=== PATIENT | female | born 1945 | race Caucasian/White ===

== ENCOUNTER 2019-07-08 11:42 | Emergency (ER) | payer MEDICARE, BC ==
--- OUTSIDE RECORDS SUMMARY | 2019-07-08 12:04 | XMS REPORT | Continuity of Care Document ---
:1945 External Reference #:[id number] Author Name Anand Fernandez M.D. (transmitted by agent of provider Gabby Haywood) Address [address] [place] [id number] Care Team Providers Name Role Phone Adolph Castro M.D. Care Team Information Java Application Engineer [phone] Rebecca Pardo ANP-C Care Team Information Java Application Engineer [phone] Problems Active Problems Provider Date Carotid artery occlusion Vascular Lab Onset: 08/11/2011 Raynaud's disease Vascular Lab Onset: 08/11/2011 Social History Type Date Description Comments Sex Unknown Tobacco Use Start: Unknown End: Unknown Former Cigarette Smoker 1 Pack Daily Tobacco Use Start: Unknown End: Unknown Former Cigarette Smoker 1 Pack Daily Cigarette Use Pack Years - 35 ETOH Use Denies alcohol use Tobacco Use Start: Unknown End: Unknown Patient is a former smoker Smoking Status Reviewed: 06/07/19 Patient is a former smoker Allergies, Adverse Reactions, Alerts Description No Known Drug Allergies Medications Active Medications SIG Qnty Indications Ordering Provider Date Clopidogrel Bisulfate 1 po qd 30tabs Anand Fernandez M.D. 06/07/2019 75mg Tablets Calcium-D qd Vascular Lab 06/23/2009 600mg Capsules Osteo Bi Flex qd Vascular Lab 06/23/2009 Aspir-81 qd Vascular Lab 06/23/[address] Fish Oil qd Vascular Lab 06/23/2009 1000mg Capsules Glucosamine-Chondroitin qd Vascular Lab 06/23/2009 1000mg Capsules Tylenol 2 qd Vascular Lab 06/23/2009 Red Yeast Rice Extract qd Unknown 600mg Capsules Immunizations Description No Information Available Vital Signs Date Vital Result Comment 06/07/2019 12:17pm BP Systolic Left Arm 80 mmHg BP Diastolic Left Arm 60 mmHg Height 63 inches 5'3" Weight 168.00 lb Weight 76.205 kg BMI (Body Mass Index) 29.8 kg/m2 08/21/2018 1:55pm BP Systolic Left Arm 110 mmHg Diff to hear BP Diastolic Left Arm 70 mmHg Diff to hear Height 63 inches 5'3" Weight 200.00 lb Weight 90.720 kg BMI (Body Mass Index) 35.4 kg/m2 Results Test Date Facility Test Result H/L Range Note Xray 06/07/2019 Main Office Carotid Ultrasound Bilateral <pending> [phone] Procedures Date Code Description Status 06/07/2019 60964 Duplex Scan Extracranial Arteries, Complete Bilateral Completed Study Medical Devices Description No Information Available Encounters Description No Information Available Assessments Date Code Description Provider 06/07/2019 I65.23 Occlusion and stenosis of bilateral carotid Anand Fernandez M.D. arteries 06/07/2019 I65.23 Occlusion and stenosis of bilateral carotid Vascular Lab arteries Plan of Treatment Future Appointment(s):06/11/2020 10:00 am - Anand Fernandez M.D. at Main Mqoezt7506/11/2020 9:30 am - V[facility] Lab at [facility] Qzxmow8706/07/2019 - Anand Fernandez M.D.New Medication:Clopidogrel Bisulfate 75 mgNew Xrays:Carotid Ultrasound Bilateral, Scheduled: 06/07/19Follow up:1 YEAR OV/US/ CAROTID BILATERAL/ Functional Status Description No Information Available Mental Status Description No Information Available Referrals Description No Information Available
--- OUTSIDE RECORDS SUMMARY | 2019-07-08 12:04 | XMS REPORT | Continuity of Care Document ---
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 Carpal tunnel syndrome Onset: 08/08/2011 Carotid artery occlusion Onset: 08/08/2011 Social History Type Date Description Comments Sex Unknown ETOH Use Denies alcohol use Tobacco Use Start: Unknown End: Unknown Patient is a former smoker Smoking Status Reviewed: 06/06/19 Patient is a former smoker Allergies, Adverse Reactions, Alerts Description No Known Drug Allergies Medications Active Medications SIG Qnty Indications Ordering Date Provider Aleve 1 tab twice a day 06/06/2019 220mg Capsules MD Matthew Osteo Bi-Flex Regular 1 by mouth every 30tabs 06/06/2019 Strength michael Castro MD 250-200mg Tablets Aspir-Low 1 by mouth every 06/06/[address] michael Castro MD Fish Oil 1 tablets by mouth 06/06/2019 1200mg Capsules every day MD Matthew Red Yeast Rice Extract 1 by mouth every 06/06/2019 day for MD Matthew 600mg Capsules cholesterol Calcium 2 by mouth every 60tabs 06/06/2019 500mg Tablets day (1200 daily by MD Matthew some brands) Caffine Free Water 1 Daily 06/06/2019 Pills MD Matthew Levocetirizine 1 every day as 90tabs J30.9 Adolph 09/05/2017 Dihydrochloride needed MD Matthew 5mg Tablets Plavix 1 by mouth every 90tabs I65.23 Adolph 08/03/2012 75mg Tablets day MD Matthew Immunizations CPT Code Status Date Vaccine Lot # [id number] Given 07/17/2018 Zoster (Shingles) Vaccine (HZV), Recombinant, Subunit, Adjuvanted 72171 Given 07/17/2018 Fluzone High Dose 77916 Given 07/20/2016 Pneumonia Vaccine 59426 Given 07/13/2016 Fluzone High Dose 85720 Given 06/30/2015 Zoster (Zostavax) 96104 Given 06/26/2015 Pneumococcal Conjugate Vaccine 13 Valent For Intramuscular Use 66978 Given 06/26/2015 Fluzone High Dose 51884 Given 08/25/2014 Fluzone High Dose 37056 Given 08/22/2013 Fluzone High Dose 82113 Given 10/10/2012 Influenza Virus 3Yrs & Over 22297 Given 07/15/2011 Fluzone High Dose 98761 Given 09/20/2010 Fluzone High Dose 73365 Given 05/26/2010 Pneumonia Vaccine 65786 Given 05/26/2010 Tetanus And Diptheria (Td) For Adult Use Preservative Free 73829 Given 07/03/2009 Influenza Virus 3Yrs & Over 11886 Given 08/14/2007 Influenza Virus 3Yrs & Over 00603 Given 08/10/2006 Influenza Virus 3Yrs & Over Vital Signs Date Vital Result Comment 06/06/2019 11:04am Height 62.5 inches 5'2.50" Weight 168.00 lb Heart Rate 56 /min BP Systolic 116 mmHg BP Diastolic 58 mmHg Respiratory Rate 16 /min O2 % BldC Oximetry 98 % room air BMI (Body Mass Index) 30.2 kg/m2 05/04/2018 11:11am Height 62.5 inches Weight 225.00 lb Heart Rate 64 /min BP Systolic 102 mmHg BP Diastolic 60 mmHg Respiratory Rate 18 /min BMI (Body Mass Index) 40.5 kg/m2 Results Description No Information Available Procedures Date Code Description Status 03/17/2016 28413706 Colonoscopy Completed 03/17/2016 04494833 Mammogram Completed 02/21/2013 160752954 Bone Mineral Density Test Completed Medical Devices Description No Information Available Encounters Description No Information Available Assessments Date Code Description Provider 06/06/2019 Z00.00 Encounter for general adult medical Adolph Castro MD examination without abnormal findings 06/06/2019 Z12.31 Encounter for screening mammogram for Adolph Castro MD malignant neoplasm of breast 06/06/2019 Z78.0 Asymptomatic menopausal state Adolph Castro MD 06/06/2019 I65.23 Occlusion and stenosis of bilateral carotid Adolph Castro MD arteries 06/06/2019 E66.3 Overweight Adolph Castro MD Plan of Treatment Future Appointment(s):06/10/2020 10:00 am - [facility]2019 - Adolph Castro MDZ00.00 Encounter for general adult medical examination without abnormal findingsFollow up:1 year. lchsnuizG86.31 Encounter for screening mammogram for malignant neoplasm of zosqukA94.0 Asymptomatic menopausal rcjgaO56.23 Occlusion and stenosis of bilateral carotid acfxfcnsN34.3 OverweightAllNew Medication:Aleve 220 mg - 1 tab twice a dayOsteo Bi-Flex Regular Strength 250-200 mg - 1 by mouth every dayAspir-Low 81 mg - 1 by mouth every dayFish Oil 1200 mg - 1 tablets by mouth every dayRed Yeast Rice Extract 600 mg - 1 by mouth every day for cholesterolCalcium 500 mg - 2 by mouth every day (1200 daily by some brands) Caffine Free Water Pills - 1 Daily Functional Status Functional Condition Comment Date Status Complete lower and upper and lower dentures Active Glasses Active Mental Status Description No Information Available Referrals Description No Information Available
[2019-07-08 12:15] VITALS: BP 84/54
[2019-07-08] MEDS ORDERED: HYDROcodone/ACETAMIN 5-325 MG* 1 TAB PO ONE (12:37)
--- NOTE | 2019-07-08 12:45 | UC ---
Minor Trauma HPI - HPI Summary HPI Summary: 73-year-old female presents with complaints of left shoulder pain after falling approximately 3-4 feet off of a step stool and landing on her shoulder just prior to arrival. Patient states that she did hit her head during the fall but denies any loss of consciousness. Patient is on Plavix. She has full recollection of the event as well as events immediately prior to and following the incident. Patient complains of severe pain to the proximal left humerus. Pain worsens with any type of movement. Denies headache, visual disturbances, dizziness, slurred or difficulty speaking, neck pain, chest pain, shortness of breath, abdominal pain, nausea, vomiting, numbness, tingling, or any other injury. - History of Current Complaint Chief Complaint: UCUpperExtremity Stated Complaint: S/P FALL-LEFT SHOULDER INJURY Time Seen by Provider: 07/08/19 12:25 Hx Obtained From: Patient Pain Intensity: 8 - Allergies/Home Medications Allergies/Adverse Reactions: Allergies Allergy/AdvReac Type Severity Reaction Status Date / Time No Known Allergies Allergy Verified 07/08/19 12:07 Home Medications: Home Medications Acetaminophen [Acetaminophen ER] 650 mg PO BID 07/08/19 [History Confirmed 07/08] Calcium Carbonate/Vitamin D3 [Calcium 600 + Vit D Tablet] 2 each PO DAILY [History Confirmed 07/08/19] Seligman-3 Fatty Acids/Fish Oil [Seligman 3] 1 cap PO DAILY 07/08/19 [History Confirmed 07/08/19] PMH/Surg Hx/FS Hx/Imm Hx Cardiovascular History: Other - Carotid stenosis Other History Of: Anticoagulant Therapy - Surgical History Surgical History: Yes Surgery Procedure, Year, and Place: Cholecystectomy in [place]; [facility]; Carpal Tunnel Right Wrist in [place], [place] - Family History Known Family History: Positive: Non-Contributory - Social History Occupation: Retired Lives: With Family Alcohol Use: None Substance Use Type: None Smoking Status (MU): Former Smoker Type: Cigarettes Have You Smoked in the Last Year: No When Did the Patient Quit Smoking/Using Tobacco: 1980s - Immunization History Most Recent Tetanus Shot: 2 yrs ago Review of Systems All Other Systems Reviewed And Are Negative: Yes Constitutional: Positive: Negative Skin: Positive: Bruising Eyes: Negative: Blurred Vision, Diplopia, Photophobia ENT: Positive: Negative Respiratory: Negative: Shortness Of Breath, Cough Cardiovascular: Negative: Palpitations, Chest Pain Gastrointestinal: Negative: Abdominal Pain, Vomiting, Nausea Physical Exam - Summary Physical Exam Summary: GENERAL APPEARANCE: Well developed, well nourished, alert and cooperative, and appears to be in no acute distress. HEAD: Atraumatic. normocephalic. EYES: Conjunctiva clear. No drainage. PERRL, EOM intact. Vision is grossly intact. EARS: External auditory canals and tympanic membranes clear, hearing grossly intact. NOSE: No nasal discharge. NECK: Neck supple, non-tender. Full painless ROM. CARDIAC: Normal S1 and S2. No S3, S4 or murmurs. Rhythm is regular. There is no peripheral edema, cyanosis or pallor. Extremities are warm and well perfused. Capillary refill is less than 2 seconds. Peripheral pulses intact. LUNGS: Clear to auscultation without rales, rhonchi, wheezing or diminished breath sounds. ABDOMEN: Positive bowel sounds. Soft, nondistended, nontender. No guarding or rebound. No masses or hepatosplenomegally. MUSKULOSKELETAL: Normal muscular development. Normal gait. BACK: Examination of the spine reveals no spinal deformity or tenderness, decreased range of motion or muscular spasm. EXTREMITIES: Tenderness to the proximal humerus with ecchymosis and mild edema present. No gross deformity. ROM limited d/t pain. Circulation and sensation intact. NEUROLOGICAL: CN II-XII intact. Strength and sensation symmetric and intact throughout. Reflexes 2+ throughout. SKIN: Skin normal color, texture and turgor . Triage Information Reviewed: Yes Vital Signs: Initial Vital Signs Temp 97.3 F 07/08/19 12:05 Pulse 58 07/08/19 12:05 Resp 18 07/08/19 12:05 BP 84/54 07/08/19 12:05 Pulse Ox 100 07/08/19 12:05 Vital Signs Reviewed: Yes Diagnostics - Radiology No standard instances Radiology Interpretation Completed By: Radiologist Summary of Radiographic Findings: Order Information: CT BRAIN WO. Indication: Fall, head injury on anticoagulants. CT of the brain performed without IV contrast. Ventricular structures are midline. No midline shift is noted. Central and cortical atrophy is noted. Hypodensity in the right posterior parietal lobe is noted suggestive of old infarct. No evidence of intracranial hemorrhage is noted. Mastoid air cells and paranasal sinuses are unremarkable. IMPRESSION: No intracranial hemorrhage is noted. 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 Order Information: SHOULDER LEFT 2+ VWS. INDICATION: Left shoulder injury. TECHNIQUE: 4 views of the left shoulder were obtained. FINDINGS: Bones are osteopenic. An obliquely oriented mildly foreshortened fracture extends through the surgical neck to the proximal shaft of the left humerus. The joint spaces are grossly preserved. There is mild acromial clavicular osteoarthropathy. The left hemithorax is grossly unremarkable. IMPRESSION: LEFT HUMERAL FRACTURE ABOVE. Minor Trauma Course/Dx - Course Course Of Treatment: 73-year-old female presents with complaints of left shoulder pain after falling approximately 3-4 feet off of a step stool and landing on her shoulder just prior to arrival. Patient states that she did hit her head during the fall but denies any loss of consciousness. Patient is on Plavix. She has full recollection of the event as well as events immediately prior to and following the incident. Patient complains of severe pain to the proximal left humerus. Pain worsens with any type of movement. Denies headache, visual disturbances, dizziness, slurred or difficulty speaking, neck pain, chest pain, shortness of breath, abdominal pain, nausea, vomiting, numbness, tingling, or any other injury. Afebrile. Mildly hypotensive and bradycardic however patient states that this is normal for her. Remainder of vitals are stable. On exam patient had an atraumatic head and was neurologically intact, tenderness to the proximal humerus with ecchymosis and mild edema present, no gross deformity, limited range of motion due to pain, circulation and sensation were intact, and remainder of exam was unremarkable. Patient was given [place] onacetaminophen 5 mg/325 mg 1 tablet PO FOR PAIN. CT brain showed no acute intracranial injury however did note hypodensity in the right posterior parietal lobe suggestive of old infarct. Left shoulder/humerus x-ray showed an obliquely oriented mildly foreshortened fracture that extends through the neck to the proximal shaft. Discussed case with Dr. Helm, orthopedic surgery. Recommends placing patient a sling and having her follow-up in the office in 3 days for further evaluation and treatment. I discussed the radiological findings as well as the plan of care with the patient. I will provide her with a short-term prescription for hydrocodoneacetaminophen 5 mg/325 mg 1 tablet every 6 hours as needed for severe pain. Anticipatory guidance and warning symptoms were also reviewed with the patient. Verbalizes understanding and agrees with plan of care. - Differential Dx/Diagnosis Differential Diagnosis/HQI/PQRI: Contusion(s), Fracture, Dislocation, Sprain, Other - closed head injury, concussion, intracranial hemorrhage Provider Diagnosis: Closed traumatic displaced fracture of proximal end of left humerus, Closed head injury Discharge ED - Sign-Out/Discharge Documenting (check all that apply): Patient Departure All imaging exams completed and their final reports reviewed: Yes - Discharge Plan Condition: Stable Disposition: HOME Prescriptions: Hydrocodone/Acetaminophen [Hydrocodone/Acetaminophen 5-325 mg] 1 tab PO Q6HR PRN #12 tab MDD 4 PRN Reason: Pain - Severe Patient Education Materials: Arm Fracture in Adults (ED), How to Use a Sling ( ED) Referrals: Adolph Castro MD [Primary Care Provider] - Roger Britt MD [Medical Doctor] - 3 Days (Call for appointment) Additional Instructions: The CT scan of your brain performed in the clinic today showed no acute bleeding or injury. There is an area in the right posterior parietal lobe suggestive of old infarct (stroke). The x-ray performed in the clinic today showed evidence of a displaced fracture the left humerus. Rest the arm as much as possible. Wear the sling that was provided to you for support and comfort. You may remove to shower but should wear at all other times. Apply ice to the affected area for 15-20 minutes at least 4 times a day to help with the pain and swelling. Take acetaminophen (Tylenol) according to directions as needed for pain. Use hydrocodone-acetaminophen 5 mg/325 mg 1 tablet every 6 hours as needed for severe pain. This medication will cause drowsiness a do not take and drive or operate machinery. Follow up with orthopedic surgery in 3 days for further evaluation and treatment. Call today to schedule an appointment. Seek immediate medical attention if you have severe pain not managed with pain medication, develop numbness or tingling in the arm, hand, or fingers, or have any worsening of symptoms. - Billing Disposition and Condition Condition: STABLE Disposition: Home
== END 2019-07-08 13:39 | disposition home or self-care (01) ==
LOC: UCCORT 11:42
DX: S42.202A Unspecified fracture of upper end of left humerus, initial encounter for closed fracture (principal); S09.90XA Unspecified injury of head, initial encounter; I65.29 Occlusion and stenosis of unspecified carotid artery; Z79.02 Long term (current) use of antithrombotics/antiplatelets; Z87.891 Personal history of nicotine dependence; W08.XXXA Fall from other furniture, initial encounter; Y92.9 Unspecified place or not applicable
CPT/HCPCS: 70450; 99203; G0463